=== PATIENT | female | born 1995 | race Caucasian/White ===

== ENCOUNTER → 2023-10-04 15:33 | Outpatient (REF) | payer BC, SELFPAY | LOC: RAD 15:33 | PROVIDERS: ATTENDING PHYSICIAN Obstetrics & Gynecology; FAMILY PHYSICIAN Nurse Practitioner Family | DX: O26.851 Spotting complicating pregnancy, first trimester (principal) | CPT/HCPCS: 76801 ==

== ENCOUNTER → 2023-10-25 15:16 | Outpatient (REF) | payer BC, SELFPAY | LOC: PNTC 15:16 | PROVIDERS: ATTENDING PHYSICIAN Obstetrics & Gynecology | DX: Z36.0 Encounter for antenatal screening for chromosomal anomalies (principal); Z36.82 Encounter for antenatal screening for nuchal translucency | CPT/HCPCS: 76801; 76813 ==

== ENCOUNTER 2024-01-03 08:12 | Emergency (ER) | payer BC, SELFPAY ==
[2024-01-03] VITALS (8 sets, daily range): BP systolic 100–119; BP diastolic 61–82; PULSE 105–136; BMI 25.2
--- NOTE | 2024-01-03 08:33 | ED.GENMED ---
History of Present Illness
General
Chief Complaint: Problems
Source: patient and family (Mother)
Exam Limitations: none
Time Seen by Provider: 01/03/24 08:17
Nursing documentation reviewed up to this point in time: agreed with
History of Present Illness
History of Present Illness:
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 Patient
reports that she was in her normal state of health yesterday. She says that last night she was up much of the night because her 2-year-old daughter had a nightmare; she says she was holding her daughter and comforting her until around 3 AM. She
says that at around 3 AM she began to have a headache which she describes as a frontal headache. She says she took some Tylenol which helped with her headache and was able to get to bed. When she woke up she said she noted she was having some
soreness in the left shoulder and upper arm which she attributed to lifting her daughter. She says that she started to notice her headache come back. She says that she started to develop some lightheadedness and now she feels very weak as if she
might faint. She says that she ate some breakfast which helped a small amount but her symptoms did not resolve and so she came to the emergency room to be assessed. She does admit that she has had morning sickness with this and has not
been drinking as much water as she should. She also reports that she has been spending a lot of time outside near the pool with her daughter and thinks there is a chance she may be dehydrated. She has not had any chest pain. She denies any
abdominal pain. She denies any vaginal bleeding. She denies any urinary symptoms. She denies any fevers. She denies any palpitations. She denies other complaints.
Past History
Past History
ED Past Surgical History: (02/09/22)
Social History
Tobacco: Non-smoker
Alcohol: None
Drug: None
Personal:
Living: with family
Review of Systems
Review of Systems
All Other Systems: ROS reviewed and negative except as documented in HPI and ROS
Constitutional: Reports fatigue; Denies fever or chills
EENT: Denies sore throat or runny nose
Respiratory: Denies cough or trouble breathing
Cardiac: Denies chest pain or palpitations
ABD/GI: Reports nausea; Denies abdominal pain, vomiting or diarrhea
: Denies dysuria, frequency, flank pain or bleeding
Neurological: Reports dizzy (Lightheaded) and headache
Phy Exam
Physical Exam
Physical Exam:
General: Awake, alert, oriented x3; no acute distress
Head: Normocephalic, atraumatic
Eyes: Conjunctiva normal, sclera anicteric
Throat: Airway intact, slightly dry oral mucosa
Neck: Trachea midline, supple without meningismus
Lungs: Clear to auscultation bilaterally, no wheezing, rales, rhonchi
Heart: Tachycardia with regular rhythm, no murmurs, gallops, or rubs
Abd: Appropriate size for gestational age; soft, non distended, nontender to deep palpation
Back: No CVA tenderness
Neuro: Cranial nerves grossly intact, speech fluid, no gross motor or sensory deficit
Skin: no rash
Extremities: No edema in extremities, equal pulses in all extremities; she has some mild tenderness along the deltoid on the left shoulder as well as the left trapezius but no tenderness along the clavicle, at the AC joint, scapula, and full range
of motion of the left shoulder and elbow
Scores
Heart Failure Risk
Heart Failure Risk Score: Not Applicable
Heart Score for Chest Pain Patients
STEMI patient?: Not applicable
Withdrawal Assessment of Alcohol
Withdrawal Assessment Completed?: Not applicable
Course
Orders/Labs/Results
Orders:
Orders
01/03/24 08:18
Electrocardiogram (*1) Urgent
Reason for Study: Vertigo / Dizzy
EKG- Treatment ONCE
01/03/24 08:19
Orthostatic VS- Treatment ONCE
0.9% Sodium Chloride 1000 ml [Nss] 1,000 ml IV BOLUS
01/03/24 08:45
Heart Tones ONCE
01/03/24 08:56
Complete Blood Count/With Diff Urgent
Comprehensive Metabolic Panel Urgent
TSH Reflex To Free T4 Urgent
Troponin I Urgent
Urinalysis Reflex To Culture Urgent
Date Specimen was Collected: 01/03/24
Time Specimen was Collected: 08:52
01/03/24 11:31
Acetaminophen [Tylenol] 1,000 mg .ROUTE .STK-MED ONE
01/03/24 11:36
Acetaminophen [Tylenol] 1,000 mg PO NOW STA
Abnormal Lab Results
01/03/24
08:56
RBC 3.71 L 10^6/uL
(4.20-5.40)
Hgb 11.3 L g/dL
(12.0-16.0)
Hct 32.9 L %
(37.0-47.0)
Abs Immat Gran (auto) 0.1 H 10^3/uL
(0-0.05)
Absolute Neuts (auto) 8.0 H 10^3/uL
(1.4-6.5)
Absolute Lymphs (auto) 1.1 L 10^3/uL
(1.2-3.4)
Immature Gran % 0.8 H %
(0-0.5)
Neutrophils % 82.0 H %
(42.2-75.2)
Lymphocytes % 11.1 L %
(20.5-51.1)
Sodium 133 L mmol/L
(135-145)
Creatinine 0.4 L mg/dL
(0.6-1.0)
Total Protein 6.0 L g/dl
(6.3-8.2)
Albumin 3.4 L g/dl
(3.5-5.0)
01/03/24 08:56
01/03/24 08:56
Vital Signs
Initial and Last Documented VS:
Initial Vital Signs
Temp Pulse Resp BP Pulse Ox
37.0 C 111 18 119/81 100
01/03/24 08:13 01/03/24 08:13 01/03/24 08:13 01/03/24 08:13 01/03/24 08:13
Last Documented Vital Signs
Temp Pulse Resp BP Pulse Ox
37.0 C 82 15 101/67 99
01/03/24 08:13 01/03/24 12:00 01/03/24 12:00 01/03/24 12:00 01/03/24 12:00
Information
Weeks gestation: N/A
Location: N/A
MDM/Problems Addressed
Differential Diagnosis Includes:
Anemia, dehydration, electrolyte derangement, dysrhythmia, thyroid dysfunction, pericarditis/myocarditis less likely
MDM/Problems Addressed:
28-year-old female presents to the emergency room primarily concerned about lightheadedness that started this morning�was up most of the night last night comforting her 2-year-old daughter due to a nightmare and developed headache which improved
with Tylenol this morning woke up had some soreness in the left arm/shoulder and developed some lightheadedness. Tachycardic but otherwise normal vitals�she has a long history of tachycardia she says. She does not have any palpitations or chest
pain. Will plan to check an EKG. Will check labs including a CBC and a CMP, thyroid studies, troponin. Will provide some IV fluids. Will reassess after the above.
Labs reviewed: CBC shows hemoglobin of 11.3 normal related change. CMP no clinically significant abnormalities. Troponin was undetectable. Thyroid studies normal. Urinalysis negative for infection. EKG shows sinus rhythm. Orthostatic
vital signs did show significant increase in heart rate from lying to standing. Clinical suspicion is for dehydration and likely lack of sleep also contributing to her symptoms. Who provided IV fluids and Tylenol here and patient says she is
feeling much better. Heart rate improved to the 80s now. I think she is stable for discharge. Advised patient to try to stay out of the sun and to be mindful of hydration and sleep. She indicated understanding. All questions answered.
*Pulse Oximetry
Patient hypoxic: no
*EKG
Interpreted by ED Provider?: Yes
Comparison EKG: changes noted (HR decreased)
Heart Rate: 104
Rate: tachycardiac
Rhythm: sinus
[place]: normal axis
Interval: normal interval
QRS Pattern: normal QRS
Ischemia: no ischemia
*Critical Care Note
Total Time (30-74mins, 75-104mins- exclusive of procedures): Not Applicable
Data Reviewed
Review of Other/Old Records Reveals: Labs, Records and Testing (Echocardiogram)
Source: patient and records
ED Attending Note
-
Portions of this chart may have been created with voice recognition software.� Occasional wrong word or��sound alike� substitutions may have occurred due to the inherent limitations of voice recognition software.
Discharge Plan
Departure
Patient Disposition: Home (Routine Discharge)
Date of Disposition: 01/03/24
Time of Disposition: 12:03
Patient with high blood pressure during this ER visit?: No
Discharge Problem:
Lightheadedness, Dehydration, Headache
Instructions: Taking in Enough Fluids While You Are , Dehydration, Adult ED
Prescriptions:
No Action
PNV cmb#95-ferrous fumarate-FA [] 1 EACH tablet
1 ea PO DAILY
amoxicillin 500 mg Tablet
500 mg PO TID
acetaminophen 325 mg Tablet
650 mg PO Q4HPRN PRN (Reason: mild pain) Qty: 0 0RF
sennosides-docusate sodium 8.6-50 mg Tablet
1 tab PO DAILYPRN PRN (Reason: constipation) Qty: 0 0RF
oxycodone-acetaminophen 5-325 mg Tablet
1 tab PO Q4HPRN Qty: 12 0RF
ibuprofen 600 mg Tablet
600 mg PO Q6HPRN PRN (Reason: cramps) Qty: 30 0RF
simethicone [Gas Relief 80 (simethicone)] 80 mg Tablet,Chewable
80 mg PO TIDPRN PRN (Reason: flatulence) Qty: 0 0RF
Referrals:
Claudia Dye DO [Family Provider] - Follow up in 5-7 days
Bella Storey MD [Active] - Keep scheduled appt
Activity Restrictions/Additional Instructions:
Thank you for visiting the Emergency Department at [facility].
1. Please schedule a follow up appointment as directed. Call first thing tomorrow morning to make an appointment.
2. If indicated, please take your medications as instructed and indicated on discharge paperwork.
3. If any of your symptoms do not improve, or persist, or become more severe within 6-12 hours, please return to the emergency department for further care.
4. Please return to the emergency department if you develop a headache, neck pain/stiffness, fever greater than 100.4F, chest pain, shortness of breath, persistent nausea, vomiting, slurred speech, difficulty walking, numbness/tingling, weakness,
signs of infection or any other symptoms that are worrisome to you.
Please call [phone] if you have any questions.
Interventions
Interventions:
*Risk Screen - Suicide Last Done: 01/03/24 08:13
*General Assessment Last Done: 01/03/24 08:13
*Neglect/Abuse Screening Last Done: 01/03/24 08:13
ED- Fall Risk Assessment Last Done: 01/03/24 08:47
*ED COVID-19 Vaccine History Last Done: 01/03/24 08:13
*Nursing Disposition Last Done: 01/03/24 12:21
ED-Female Genitourinary Assessment Last Done: 01/03/24 09:28
Discharge Date and Time
Discharge Date/Time: 01/03/24 12:23
Print Language: TAMAZIGHT
[2024-01-03] MEDS: NSS 1000 IV (08:55)
[2024-01-03 09:28] LABS: Urine Albumin Negative (Neg - Trace); Urine Bilirubin Negative (Negative); Urine Character Slightly Cloudy (Clear); Urine Color Yellow; Urine Glucose Negative (Negative); Urine Ketone Negative (Negative); Urine Leukocyte Negative (Negative); Urine Nitrite Negative (Negative); Urine Occult Blood Negative (Negative); Urine Specific Gravity 1.015 (<1.030); Urine Urobilinogen Negative (Neg - 1+)
[2024-01-03 09:31] LABS: ALT (SGPT) 12 U/L (0-35); AST (SGOT) 22 U/L (14-36); Albumin 3.4 g/dl (3.5-5.0); Alkaline Phosphatase 53 U/L (38-126); Blood Urea Nitrogen 8 mg/dl (7-17); Calcium 8.5 mg/dl (8.4-10.2); Carbon Dioxide 22 mmol/L (22-30); Chloride 106 mmol/L (98-107); Estimated Creatinine Clearance > 125 ml/min; Glucose 99 mg/dl (70-99); Potassium 3.6 mmol/L (3.5-5.1); Sodium 133 mmol/L (135-145); Total Bilirubin 0.3 mg/dl (0.2-1.3); eGFR > 60.00
[2024-01-03 09:33] LABS: % Basophils 0.3 % (0-2); % Eosinophils 0.2 % (0-6); % Immature Granulocytes 0.8 % (0-0.5); % Lymphocytes 11.1 % (20.5-51.1); % Monocytes 5.6 % (1.7-9.3); Absolute Immature Granulocytes 0.1 10^3/uL (0-0.05); Absolute Lymphocytes 1.1 10^3/uL (1.2-3.4); Absolute Monocytes 0.6 10^3/uL (0.1-0.6); Hematocrit 32.9 % (37.0-47.0); Hemoglobin 11.3 g/dL (12.0-16.0); Mean Corp Hgb Conc. 34.3 g/dL (33.0-37.0); Mean Corpuscular Hgb 30.5 pg (27.0-31.0); Mean Corpuscular Volume 88.7 fL (81.0-99.0); Nucleated Red Blood Cells % 0 %; Platelet Count 221 10^3/uL (130-400); Red Blood Cell Count 3.71 10^6/uL (4.20-5.40); Red Cell Dist. Width 13.4 % (11.5-14.5); White Blood Cell Count 9.8 10^3/uL (4.8-10.8)
[2024-01-03 09:42] LABS: Troponin I < 0.012 ng/ml
[2024-01-03 10:02] LABS: TSH Reflex To Free T4 0.86 uIU/ml (0.47-4.68)
[2024-01-03] MEDS: TYLENOL 1000 MG PO (11:37)
== END 2024-01-03 12:23 | disposition home or self-care (01) ==
LOC: EMR 08:12
PROVIDERS: EMERGENCY PHYSICIAN Emergency Medicine; FAMILY PHYSICIAN Family Medicine
DX: O99.891 Other specified diseases and conditions complicating pregnancy (principal); R42 Dizziness and giddiness; E86.0 Dehydration; R51.9 Headache, unspecified; Z3A.22 22 weeks gestation of pregnancy
CPT/HCPCS: 99283; 80053; 81003; 84443; 84484; 85025; 93005

== ENCOUNTER 2024-02-24 10:39 | Observation (INO) | payer BC, SELFPAY ==
[2024-02-24 10:56] VITALS: BP 115/69; BMI 25.1
== END 2024-02-24 11:58 | disposition home or self-care (01) ==
LOC: LDRP 10:39
PROVIDERS: ADMITTING PHYSICIAN Obstetrics & Gynecology
DX: R10.9 Unspecified abdominal pain (principal); O47.03 False labor before 37 completed weeks of gestation, third trimester; Z3A.29 29 weeks gestation of pregnancy; O34.211 Maternal care for low transverse scar from previous cesarean delivery; O99.343 Other mental disorders complicating pregnancy, third trimester; F41.9 Anxiety disorder, unspecified; Z91.040 Latex allergy status; Z87.440 Personal history of urinary (tract) infections
CPT/HCPCS: 99281; G0378

== ENCOUNTER 2024-03-13 05:42 | Inpatient (IN) | payer BC, SELFPAY ==
[2024-03-13] MEDS: LR 1000 IV ×2 (06:08→15:16)
[2024-03-13] MEDS: TYLENOL 1000 MG PO (06:18)
[2024-03-13 06:24] VITALS: BP 118/75; BMI 25.1
[2024-03-13 06:32] LABS: Hematocrit 33.3 % (37.0-47.0); Hemoglobin 11.2 g/dL (12.0-16.0); Mean Corp Hgb Conc. 33.6 g/dL (33.0-37.0); Mean Corpuscular Hgb 29.6 pg (27.0-31.0); Mean Corpuscular Volume 88.1 fL (81.0-99.0); Mean Platelet Volume 10.4 fL (7.4-10.4); Platelet Count 232 10^3/uL (130-400); Red Blood Cell Count 3.78 10^6/uL (4.20-5.40); Red Cell Dist. Width 12.8 % (11.5-14.5); White Blood Cell Count 8.4 10^3/uL (4.8-10.8)
[2024-03-13 06:50] LABS: ALT (SGPT) 11 U/L (0-35); AST (SGOT) 24 U/L (14-36); Albumin 3.4 g/dl (3.5-5.0); Alkaline Phosphatase 111 U/L (38-126); Blood Urea Nitrogen 10 mg/dl (7-17); Calcium 8.8 mg/dl (8.4-10.2); Carbon Dioxide 18 mmol/L (22-30); Chloride 108 mmol/L (98-107); Estimated Creatinine Clearance > 125 ml/min; Glucose 86 mg/dl (70-99); Sodium 138 mmol/L (135-145); Total Bilirubin 0.3 mg/dl (0.2-1.3); Total Protein 5.9 g/dl (6.3-8.2); eGFR > 60.00
[2024-03-13 07:15] LABS: Fibrinogen 530 MG/DL (199-459); INR 1.04; PT 13.6 Sec (11.4-14.6)
[2024-03-13] MEDS: CELESTONE SOLUSPAN 2 MG IM (07:42)
[2024-03-13 07:52] LABS: Urine Albumin Negative (Neg - Trace); Urine Bilirubin Negative (Negative); Urine Character Clear (Clear); Urine Color Yellow; Urine Glucose Negative (Negative); Urine Ketone Negative (Negative); Urine Leukocyte Negative (Negative); Urine Nitrite Negative (Negative); Urine Occult Blood 4+ (Negative); Urine Urobilinogen Negative (Neg - 1+)
[2024-03-13 08:06] LABS: Urine Squamous Cell 16-20 /LPF (Few)
[2024-03-13 08:07] LABS: Urine White Cell 0-2 /HPF (0-5)
[2024-03-13] MEDS: TUMS EX (EXTRA STRENGTH) CHEWABLE 2 TABLET PO (20:03)
[2024-03-14] MEDS: CELESTONE SOLUSPAN 2 MG IM (07:05)
== END 2024-03-14 08:30 | disposition home or self-care (01) | DRG 833 ==
LOC: LDRP 05:42
PROVIDERS: ADMITTING PHYSICIAN Obstetrics & Gynecology
DX: O46.93 Antepartum hemorrhage, unspecified, third trimester (principal); O36.63X0 Maternal care for excessive fetal growth, third trimester, not applicable or unspecified; Z3A.32 32 weeks gestation of pregnancy
CPT/HCPCS: 76816; 80053; 81003; 81015; 85027; 85384; 85460; 85610; 86850; 86900; 86901

== ENCOUNTER 2024-04-18 15:24 | Observation (INO) | payer OTHER, SELFPAY ==
[2024-04-18 15:34] VITALS: BP 104/77; BMI 26.7
== END 2024-04-18 17:22 | disposition home or self-care (01) ==
LOC: LDRP 15:24
PROVIDERS: ADMITTING PHYSICIAN Obstetrics & Gynecology
DX: O26.813 Pregnancy related exhaustion and fatigue, third trimester (principal); Z3A.37 37 weeks gestation of pregnancy; Z91.040 Latex allergy status; O99.343 Other mental disorders complicating pregnancy, third trimester; F41.9 Anxiety disorder, unspecified; O99.820 Streptococcus B carrier state complicating pregnancy
CPT/HCPCS: 36415; 86850; 86900; 86901; G0378

== ENCOUNTER 2024-04-19 14:21 | Inpatient (IN) | payer OTHER, SELFPAY ==
[2024-04-19 14:27] VITALS: BP 112/70; BMI 26.5
[2024-04-19] MEDS: LR 1000 IV (14:59)
[2024-04-19 15:16] LABS: Hematocrit 35.3 % (37.0-47.0); Mean Corpuscular Hgb 27.8 pg (27.0-31.0); Mean Corpuscular Volume 81.9 fL (81.0-99.0); Mean Platelet Volume 11.1 fL (7.4-10.4); Platelet Count 199 10^3/uL (130-400); Red Blood Cell Count 4.31 10^6/uL (4.20-5.40); Red Cell Dist. Width 13.3 % (11.5-14.5); White Blood Cell Count 7.1 10^3/uL (4.8-10.8)
[2024-04-19] MEDS: BICITRA 30 ML PO (15:24)
[2024-04-19] MEDS: TYLENOL 1000 MG PO (15:24)
[2024-04-19] MEDS: ANCEF 10 IV (15:24)
[2024-04-19] MEDS: PITOCIN 30 UNITS/NSS 500 ML IV (18:27)
[2024-04-19] MEDS: PERCOCET 5/325 2 TABLET PO (19:47)
[2024-04-19] MEDS: BENADRYL 25 MG PO (22:06)
[2024-04-19] MEDS: ZOLOFT 50 MG PO (22:06)
[2024-04-19] MEDS: TORADOL 15 MG IV (22:32)
[2024-04-20] MEDS: PERCOCET 5/325 2 TABLET PO (00:57)
[2024-04-20] MEDS: BENADRYL 25 MG PO (04:26)
[2024-04-20 04:35] LABS: Hemoglobin 9.2 g/dL (12.0-16.0); Mean Corp Hgb Conc. 34.1 g/dL (33.0-37.0); Mean Corpuscular Hgb 28.7 pg (27.0-31.0); Mean Corpuscular Volume 84.1 fL (81.0-99.0); Mean Platelet Volume 11.3 fL (7.4-10.4); Platelet Count 168 10^3/uL (130-400); Red Blood Cell Count 3.21 10^6/uL (4.20-5.40); Red Cell Dist. Width 13.2 % (11.5-14.5); White Blood Cell Count 11.8 10^3/uL (4.8-10.8)
[2024-04-20] MEDS: PERCOCET 5/325 1 TABLET PO ×5 (05:04→23:59)
[2024-04-20] MEDS: TORADOL 15 MG IV ×3 (05:04→16:43)
[2024-04-20] MEDS: SENOKOT-S 1 TABLET PO (08:58)
[2024-04-20] MEDS: PRENATAL PLUS 1 TABLET PO ×2 (08:58→11:00)
[2024-04-20] MEDS: FEOSOL 325 MG PO (11:00)
[2024-04-20] MEDS: MYLICON 80 MG PO ×2 (16:54→20:17)
--- NOTE | 2024-04-20 19:02 | W.PN.ANS.POP ---
Anesthesia Post Operative
- Anesthesia Post Op Note
Vital Signs Stable-See Nursing Note: Yes
Airway Patent: Yes
Adequate Pain Control: Yes
Change in Mental Status: No
Current Postoperative Nausea & Vomiting: No
Anesthesia Complications: No
General Anesthetic Recall: No
Unplanned Admission: No
Post Op Hydration Adequate: Yes
[2024-04-20] MEDS: ZOLOFT 50 MG PO (23:45)
[2024-04-21] MEDS: MOTRIN 600 MG PO ×4 (00:14→23:18)
[2024-04-21] MEDS: MYLICON 80 MG PO (06:50)
[2024-04-21] MEDS: PERCOCET 5/325 1 TABLET PO ×3 (06:50→16:13)
[2024-04-21] MEDS: SENOKOT-S 1 TABLET PO (08:28)
[2024-04-21] MEDS: FEOSOL 325 MG PO (08:28)
[2024-04-21] MEDS: PERCOCET 5/325 2 TABLET PO (20:06)
[2024-04-21] MEDS: ZOLOFT 50 MG PO (22:07)
[2024-04-21] MEDS: TUMS CHEWABLE TABLET 400 MG PO (22:58)
[2024-04-22] MEDS: PERCOCET 5/325 1 TABLET PO ×2 (06:29→12:28)
[2024-04-22] MEDS: MOTRIN 600 MG PO ×2 (06:30→12:28)
[2024-04-22] MEDS: SENOKOT-S 1 TABLET PO (08:09)
[2024-04-22] MEDS: MYLICON 80 MG PO (08:09)
[2024-04-22] MEDS: PRENATAL PLUS 1 TABLET PO (08:09)
[2024-04-22] MEDS: FEOSOL 325 MG PO (08:09)
--- NOTE | 2024-04-22 11:02 | W.DS.TRANS ---
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
-
Discharge Instructions:
Discharge Diagnosis/Procedures Section
Instructions:
Stand-Alone Forms: LDRP Delivery
Changes to Home Medications: No
Discharge Medications:
DC Medications w/original date entered in [employer]
vit no.95-ferrous fumarate 28 mg-folic acid 800 mcg tablet () 1 ea PO DAILY Supplement 11/17/21
sertraline 50 mg tablet 50 mg PO DAILY Depression 02/24/24
acetaminophen 325 mg tablet 650 mg (2 x 325 mg) PO Q4HPRN PRN mild pain #0 tabs 04/22/24
ferrous sulfate 325 mg (65 mg iron) tablet (FeroSul) 325 mg PO DAILY #0 tabs 04/22/24
ibuprofen 600 mg tablet 600 mg PO Q6HPRN PRN cramps #60 tabs 04/22/24
oxycodone-acetaminophen 5 mg-325 mg tablet 1 tab PO Q4HPRN PRN moderate pain #15 tabs 04/22/24
sennosides 8.6 mg-docusate sodium 50 mg tablet 1 tab PO DAILYPRN PRN constipation #0 tabs 04/22/24
Home Medication Changes
Pending Results: No
[2024-04-22] MEDS: AFLURIA (36 mos+) 2024-2025 FORMULA 0.5 ML IM (12:24)
[2024-04-22 15:19] LABS: Syphilis/T. pallidum Ab Reflex Negative (Negative)
== END 2024-04-22 13:23 | disposition home or self-care (01) | DRG 788 ==
LOC: LDRP 14:21
PROVIDERS: ADMITTING PHYSICIAN Obstetrics & Gynecology
PROC: 10D00Z1 Extraction of Products of Conception, Low, Open Approach (ICD-10-PCS; 2024-04-19)
DX: O34.211 Maternal care for low transverse scar from previous cesarean delivery (principal); O36.63X0 Maternal care for excessive fetal growth, third trimester, not applicable or unspecified; O77.0 Labor and delivery complicated by meconium in amniotic fluid; Z3A.37 37 weeks gestation of pregnancy; Z37.0 Single live birth; N85.8 Other specified noninflammatory disorders of uterus; O99.824 Streptococcus B carrier state complicating childbirth
CPT/HCPCS: 88307; 85027; 86780; 86850; 86900; 86901; 90686; G0008

== ENCOUNTER → 2024-05-03 10:19 | Day surgery (SDC) | payer OTHER, SELFPAY ==
[2024-05-03 10:29] VITALS: BP 142/92
[2024-05-03 11:05] VITALS: BMI 24.3
[2024-05-03 11:18] VITALS: BP 117/82
[2024-05-03 11:27] LABS: % Basophils 0.9 % (0-2); % Eosinophils 2.5 % (0-6); % Immature Granulocytes 0.3 % (0-0.5); % Lymphocytes 27.2 % (20.5-51.1); % Monocytes 5.1 % (1.7-9.3); Absolute Basophils 0.1 10^3/uL (0-0.2); Absolute Eosinophils 0.2 10^3/uL (0-0.7); Absolute Lymphocytes 2.6 10^3/uL (1.2-3.4); Absolute Monocytes 0.5 10^3/uL (0.1-0.6); Absolute Neutrophils 6.1 10^3/uL (1.4-6.5); Hematocrit 37.7 % (37.0-47.0); Hemoglobin 12.4 g/dL (12.0-16.0); Mean Corp Hgb Conc. 32.9 g/dL (33.0-37.0); Mean Corpuscular Hgb 28.1 pg (27.0-31.0); Mean Corpuscular Volume 85.5 fL (81.0-99.0); Mean Platelet Volume 9.5 fL (7.4-10.4); Nucleated Red Blood Cells % 0 %; Platelet Count 372 10^3/uL (130-400); Red Blood Cell Count 4.41 10^6/uL (4.20-5.40); Red Cell Dist. Width 13.8 % (11.5-14.5); White Blood Cell Count 9.5 10^3/uL (4.8-10.8)
[2024-05-03 11:39] LABS: ALT (SGPT) 18 U/L (0-35); AST (SGOT) 25 U/L (14-36); Albumin 3.9 g/dl (3.5-5.0); Alkaline Phosphatase 140 U/L (38-126); Blood Urea Nitrogen 17 mg/dl (7-17); Carbon Dioxide 22 mmol/L (22-30); Chloride 108 mmol/L (98-107); Estimated Creatinine Clearance 114 ml/min; Glucose 92 mg/dl (70-99); Potassium 4.2 mmol/L (3.5-5.1); Sodium 143 mmol/L (135-145); Total Bilirubin 0.4 mg/dl (0.2-1.3); Total Protein 6.8 g/dl (6.3-8.2); eGFR > 60.00
--- NOTE | 2024-05-03 12:53 | ED.GENMED ---
History of Present Illness
General
Chief Complaint: Vaginal Bleeding
Source: patient
Exam Limitations: none
Time Seen by Provider: 05/03/24 10:40
Nursing documentation reviewed up to this point in time: agreed with
History of Present Illness
History of Present Illness:
pt is a 28 y/o F 2 weeks post c section 37 weeks 3 days
here for pelvic pain and vaginal bleeding
she has had dysuria, frequency, urgency since being a few days post
was able to get seen and give ua, was treated with amox initially and then still symptomatic switched to another abx which pt doesn't know and then now on augmentin
pt says that she still has been feeling the discomfort with urination
but then yesterday developed a lot of pelvic pain, severe pain, treate dwiht round the clock ibuprofen 600 and tylenol
this morning she started bleeding, passing large blood clots and using multiple pads
called the OB second butler and was told to come in for eval
pt has not had fever, chills, nausea, vomting
Past History
Past History
ED Past Surgical History: (02/09/22)
Social History
Tobacco: Non-smoker
Alcohol: None
Drug: None
Personal:
Living: with family
Review of Systems
Review of Systems
Allergies reviewed?: Yes
All Other Systems: Not applicable
Phy Exam
Physical Exam
Physical Exam:
GENERAL: Alert , very anxious
EYE: pupils equal and reactive
NECK: Supple
ENT: o/p clr, mmm.
CARDIAC: Regular rate and rhythm .
LUNGS: Clear breath sounds bilaterally, no acute respiratory distress, no wheezes/rales/rhonchi
ABDOMEN: Soft, without focal tenderness, no r/g, no cvat, normal bowel sounds
: normal ex ternal
mod blood in vault
no clots
mild discomfort;
no products
NEUROLOGICAL: Alert and oriented, no focal neuro deficits
SKIN: Warm and dry, skin intact.
MUSCULOSKELETAL: No edema, well perfused. neg atif's sign
PSYCH: anxious
Course
Orders/Labs/Results
Orders:
Orders
05/03/24 10:53
US Pelvis Only (non-obstetric) Urgent
Reason For Exam: 2 weeks postpart; pain/bleed; eval endometritis
05/03/24 11:17
Complete Blood Count/With Diff Urgent
Comprehensive Metabolic Panel Urgent
05/03/24 12:49
Type+Screen Urgent
Fibrinogen Urgent
PTT Urgent
Prothrombin Time Urgent
05/03/24 13:29
HYDROmorphone [Dilaudid] 0.25 mg IV PACU-Q5MPRN PRN
HYDROmorphone [Dilaudid] 0.5 mg IV PACU-Q5MPRN PRN
Meperidine [Demerol] 12.5 mg IV PACU-Q5MPRN PRN
Ondansetron Injectable [Zofran] 4 mg IV PACU-ONCEPRN PRN
Prochlorperazine [Compazine] 5 mg IV PACU-ONCEPRN PRN
Notify MD As Directed
Notify physician if: for SDS patients with known or suspected sleep obstructive sleep apnea, monitor in the
PACU.
Notify MD for any apneic/desaturation episodes
O2 Therapy [RESP] Urgent
Titrate/Wean O2 to maintain O2 sat greater than (%): 92
Special Instructions: -Provide supplemental oxygen to achieve O2 sat of 92% or greater.
-After 15 min, may wean O2 and discontinue if patient is able to maintain O2 sat of 92%
or greater during recovery period.
If patient is a discharge home, without oxygen therapy, notify anestheiologist if
unable to maintain O2 SAT of 92% or greater on room air for MD clearance.
05/03/24 13:56
Fentanyl Citrate/Pf [Sublimaze] 100 mcg .ROUTE .STK-MED ONE
Lidocaine 2% Mpf [Xylocaine Mpf 2%] 100 mg .ROUTE .STK-MED ONE
Midazolam HCl [Versed] 2 mg .ROUTE .STK-MED ONE
Propofol [Diprivan] 20 ml .ROUTE .STK-MED
05/03/24 14:27
CeFAZolin SODIUM [Ancef] 2,000 mg .ROUTE .STK-MED ONE
05/03/24 14:29
Acetaminophen 1000MG/100Ml [Ofirmev] 1,000 mg in 100 ml .ROUTE .STK-MED
Dexamethasone Sod Phosphate [Decadron] 20 mg .ROUTE .STK-MED ONE
Ondansetron Injectable [Zofran] 4 mg .ROUTE .STK-MED ONE
OR Pathology Routine
Pre-Operative Diagnosis: retained products of conception
Post-Operative Diagnosis: retained products of conception
Operative Procedure: dilation and currettage
Surgeon: Bimal
Circulating Nurse: Shauna Connor
Specimen Type: Retained products of conception
05/03/24 15:05
Tranexamic Acid 1000 mg/100 ml [Tranexamic Acid] 1,000 mg in 100 ml .ROUTE .STK-MED
05/03/24 15:17
Methylergonovine Maleate [Methergine Injection] 0.2 mg IM STAT STA
05/03/24 16:00
Acetaminophen [Tylenol] 650 mg PO SDS-Q4HPRN PRN
Ibuprofen [Motrin] 600 mg PO SDS-Q6HPRN PRN
Ondansetron Injectable [Zofran] 4 mg IV SDS-ONCEPRN PRN
Abnormal Lab Results
05/03/24
11:17
MCHC 32.9 L g/dL
(33.0-37.0)
Chloride 108 H mmol/L
(98-107)
Alkaline Phosphatase 140 H U/L
(38-126)
05/03/24 11:17
05/03/24 11:17
Vital Signs
Initial and Last Documented VS:
Initial Vital Signs
Temp Pulse Resp BP Pulse Ox
98.8 F 109 16 142/92 98
05/03/24 10:29 05/03/24 10:29 05/03/24 10:29 05/03/24 10:29 05/03/24 10:29
Last Documented Vital Signs
Temp Pulse Resp BP Pulse Ox
99.0 F 77 14 104/66 100
05/03/24 17:35 05/03/24 16:35 05/03/24 16:35 05/03/24 16:35 05/03/24 15:35
MDM/Problems Addressed
Differential Diagnosis Includes:
retained products, endometritis, post bleeding
MDM/Problems Addressed:
28 y/o F
2 weeks post
has been having ongoing dysuria, frequency despite abx that she was prescribe by ob after UA and culture
is on correct antibiotic at this point bu thaving pelvic pain since lsa tnight and then bleeding that started today with clots
no lightheadedness
well appearing
anxious
stable bp
blood in vault but no significant active bleeding
no clots
no products at cervix
hg stable
US shows blood and possibly retained products in uterus
OB aware, eval pt and will take pt to the OR for D&C.
*Critical Care Note
Total Time (30-74mins, 75-104mins- exclusive of procedures): Not Applicable
ED Attending Note
-
Portions of this chart may have been created with voice recognition software.� Occasional wrong word or��sound alike� substitutions may have occurred due to the inherent limitations of voice recognition software.
Discharge Plan
Departure
Patient Disposition: Admit
Date of Disposition: 05/03/24
Time of Disposition: 13:00
Admit to: OR
Admit to doctor: bimal
Presentation/result/management discussed w/ accepting MD/DO: bimal
Patient with high blood pressure during this ER visit?: No
Condition: Fair
Covid-19: Not Applicable
Discharge Problem:
Retained products of conception
Prescriptions:
No Action
PNV cmb#95-ferrous fumarate-FA [] 1 EACH tablet
1 ea PO DAILY
sertraline 50 mg Tablet
50 mg PO HS
ferrous sulfate [FeroSul] 325 mg (65 mg iron) Tablet
325 mg PO DAILY Qty: 0 0RF
oxycodone-acetaminophen 5-325 mg Tablet
1 tab PO Q4HPRN PRN (Reason: moderate pain) Qty: 15 0RF
ibuprofen 600 mg Tablet
600 mg PO Q6HPRN PRN (Reason: cramps) Qty: 60 0RF
acetaminophen 325 mg Tablet
650 mg PO Q4HPRN PRN (Reason: mild pain) Qty: 0 0RF
amoxicillin-pot clavulanate [Augmentin] 500-125 mg Tablet
1 tab PO TID
Patient Comments:
05/03/24: filled 04/29/24, to take for 7 days
sennosides-docusate sodium 8.6-50 mg tablet
1 tab PO DAILY
Referrals:
Claudia Dye DO [Family Provider] -
Interventions
Interventions:
*Risk Screen - Suicide Last Done: 05/03/24 10:29
*General Assessment Last Done: 05/03/24 10:29
*Neglect/Abuse Screening Last Done: 05/03/24 10:29
ED- Fall Risk Assessment Last Done: 05/03/24 11:51
*ED COVID-19 Vaccine History Last Done: 05/03/24 11:06
*Nursing Disposition Last Done: 05/03/24 14:02
ED-Female Genitourinary Assessment Last Done: 05/03/24 11:50
Discharge Date and Time
Discharge Date/Time: 05/03/24 14:03
Print Language: MALDIVIAN
[2024-05-03 13:10] LABS: INR 1.09; PT 13.9 Sec (11.4-14.6)
[2024-05-03 13:11] LABS: APTT 31.2 Sec (23.4-35.0); Fibrinogen 404 MG/DL (199-459)
--- NOTE | 2024-05-03 13:26 | HPS.HSE ---
Family Physician
-
Family Physician: Claudia Dye,
Chief Complaint
-
vaginal bleeding 2wks from c section
History of Present Illness
Patient is a 28yo s/p RLTCS on 04/19 who presents to the ED with complaints of vaginal bleeding. Patient states yesterday she was having lower abdominal pain behind her c section scar. She started taking ibuprofen and tylenol which has improved
her pain. This morning, she says she passed a few golf ball sized clots and then had an increase in her bleeding. She has been changing her pads frequently, but they are not soaked through. She is otherwise doing well . She is tolerating a
regular diet, having bowel movements and voiding spontaneously. She is currently taking Augmentin for a UTI that was diagnosed on Sunday. She is .
PMHx: SVT, anxiety, vulvodynia
Meds: sertraline, augmentin
Surghx: CSx2, LSO
NKDA
Socialhx: denies tobacco, etoh, or illicit drug use.
Famhx: daughter with 16p11.2 deletion syndrome
Pelvic US:
FINDINGS:
The uterus measures approximately 15.7 x 5.7 x 9.5 cm.
The uterus is noted.
There is mild heterogeneous thickening of the endometrium measuring 1.8 cm without increased blood flow within.
The right ovary measures 2.4 x 1.4 x 2.3 cm. There is no right adnexal mass. Right ovarian blood flow is seen..
The left ovary is surgically absent.
There is no free fluid within the cul-de-sac.
At least partially within the abdominal wall site there are several hypoechoic complex fluid collections larger measuring 4.4 x 3.5 x 4.4 cm and additional collections measuring 1.9 x 1.4 x 1.5 cm and 2.0 x 1.5 x 2.5 cm without blood flow
within.
There is no free fluid in the pelvis.
IMPRESSION:
Heterogeneous appearance of the endometrium measuring 1.8 cm without blood flow within. Findings could represent blood products. Retained products of conception cannot be excluded. Endometritis would be less but cannot be excluded.
At least three mildly complex abnormal focal fluid collections at least partially associated with the abdominal wall surgical site without blood flow within, most likely differential diagnostic possibilities would be complex seromas or
hematomas. Abscess cannot be excluded.
Medical History
Past Medical History
Past Medical History: Reports Other
Additional Past Medical History:
anxiety, SVT, vulvodynia
Past Surgical History: Reports Other
Additional Past Surgical History:
CSx2, LSO
Social History
Tobacco: Non-smoker
Alcohol: None
Drug: None
Family History
Family History: Not pertinent
Allergies / Home Medications
Allergies reflects when Allergies were last updated in [employer].
Home Medications with original date entered in [employer]
Allergy/Medication List:
NKDA
Meds: Sertraline, augmentin
Review of Systems
-
A 12 point ROS was completed and negative except as noted: Yes
Physical Exam
Vital Signs
Vital Signs
Temp Pulse Resp BP Pulse Ox
98.8 F 88 18 117/82 98
05/03/24 10:29 05/03/24 11:18 05/03/24 11:18 05/03/24 11:18 05/03/24 10:29
Physical Exam
General: Well Developed, Well Nourished and No Apparent Distress
HEENT: NormoCephalic
Respiratory: Non Labored Respirations
Cardiac: Regular Rhythm
GI: Soft, Non Tender, Non Distended and Other (incision c/d/i, no erythema, no signs of infection)
Genito-urinary: Other (10cc of blood in the vaginal vault, small amount of active oozing noted from cervix, normal vaginal mucosa, uterus non-tender, no adnexal masses)
Skin: Warm and Dry
Neuro: AO x 3
Psych: Anxious
Laboratory Results
-
05/03/24 11:17
05/03/24 11:17
Laboratory Results
PT 13.9 Sec (11.4-14.6) 05/03/24 12:49
INR 1.09 05/03/24 12:49
APTT 31.2 Sec (23.4-35.0) 05/03/24 12:49
Total Bilirubin 0.4 mg/dl (0.2-1.3) 05/03/24 11:17
AST 25 U/L (14-36) 05/03/24 11:17
ALT 18 U/L (0-35) 05/03/24 11:17
Alkaline Phosphatase 140 U/L (38-126) H 05/03/24 11:17
Impression/Plan
-
IMPRESSION:
Patient is a 28yo s/p RLTCS on 04/19 who presents with vaginal bleeding, US with possible retained products of conception
PLAN:
- Pelvic US revealed heterogeneous appearance of the endometrium measuring 1.8 cm without blood flow within. Findings could represent blood products. Retained products of conception cannot be excluded. Endometritis would be less but cannot be
excluded.
- Given patients increased bleeding and findings of possible retained products, discussed with patient recommendation for dilation and curettage. Risks, benefits, and alternatives to the procedure discussed including bleeding, infection, and damage
to surrounding structures and need for re-operation. Patient also aware that there might not be retained products and could just be blood clots in the uterus, however still recommend dilation and curettage. Patient agreeable to a blood transfusion
if needed. Risks of a blood transfusion discussed
- No concern for endometritis or infection/abscess of the c section incision at this time. Incision is clean/dry/intact with erythema and is nontender to palpation. The uterus is nontender.
- Patient is afebrile and VSS. Hgb 12.4.
- Patient is agreeable to proceeding with dilation and curettage. All questions were answered by the patient and her . OR staff was notified. Will give Ancef 2g prior to the procedure. Likely DC patient home from PACU.
[2024-05-03 15:35] VITALS: BP 127/78; BP 142/92
[2024-05-03 15:39] VITALS: BP 124/78
[2024-05-03 15:50] VITALS: BP 124/78
[2024-05-03 16:35] VITALS: BP 104/66
--- NOTE | 2024-05-03 16:48 | OR.RPT ---
Operative Report
Operative Report
Preop diagnosis: Retained products of conception
Postop diagnosis: same
Procedure: Dilation and curettage
Surgeon: Nati Wallis
Anesthesia: Dr. Howard
QBL: 250mL
Urine output: 50mL
Pathology: retained products of conception
Findings: Bimanual exam revealed uterus 16wk size, cervix 1-2cm dilated. Multiple blood clots and likely retained products removed on curettage. Continued oozing noted from cervical os at the end of the procedure. Methergine was ordered, but took
over 20 minutes to come from pharmacy. 1g TXA was given while waiting. Methergine 0.2mg IM given with improvement in bleeding. Uterus firm at the end of the procedure.
Complications: none
Indication: Patient is a 28yo s/p repeat low transverse section on 04/19. She called with complaints of passage of golf ball sized clots followed by heavy bleeding. Patient was instructed to go to the emergency room. On evaluation
in the emergency room, she had stable vital signs and hemoglobin was 12.4. Pelvic ultrasound revealed possible retained products of conception vs. blood products in the uterus. Given patients heavy bleeding, decision was made to proceed with
dilation and curettage. Risks, benefits, and alternatives were discussed and all questions answered prior to proceeding. She consented to a blood transfusion if needed. Consents were signed and the OR team was notified.
Procedure: Patient was taken to the operating room and placed under general anesthesia. She was given 2g of Ancef for antibiotic prophylaxis. She was placed in the dorsal lithotomy position. The vagina was prepped with Betadine. She was draped in
the normal sterile fashion. Time out was performed. A Brunner catheter was placed. Rosario retractors were placed in the anterior and posterior aspects of the vagina revealing good visualization of the cervix. The anterior lip of the cervix was grasped
with a single tooth tenaculum. A size 1 curette was introduced to the fundus and curettage was performed in a clockwise fashion in all quadrants of the uterine cavity. A 12mm curved rigid suction curette was advanced to the fundus. Vacuum was
applied and suction curettage was performed in a rotational motion in all quadrants of the uterus. 2 passes were performed. Care was taken not to introduce the suction curette with suction applied. A sharp curettage was then performed again until
uterine cry was felt in all quadrants of the uterus. Retained products of conception were sent to pathology for evaluation. There was still continue oozing with pooling of blood in the vaginal vault. Methergine 0.2mg IM was ordered, but was taking
over 20 minutes to come from pharmacy. While waiting, 1g of TXA was given. Methergine was given IM once it was available. There was improvement in the bleeding. Uterus was firm. The tenaculum was removed from the cervix and pressure was held with a
ring forceps to achieve hemostasis. The tenaculum sites were noted to be hemostatic. All instruments were removed from the vagina. The Brunner catheter was removed. All sponge and instrument counts were correct times 2. The patient was transferred to
PACU in stable condition.
--- NOTE | 2024-05-03 17:13 | SUR.PHASEII ---
Seen by Dr Wallis. Perineum checked for excessive bleeding. Discharge plan discussed. Ander velazquez RN \BSN.
== END ==
LOC: EMR 10:18 → SDS 10:19
PROVIDERS: Physician Assistant; ATTENDING PHYSICIAN Student in an Organized Health Care Education/Training Program; EMERGENCY PHYSICIAN Emergency Medicine; FAMILY PHYSICIAN Family Medicine
DX: O72.2 Delayed and secondary postpartum hemorrhage (principal)
CPT/HCPCS: 59160; 88305; 76856; 80053; 85025; 85384; 85610; 85730; 86850; 86900; 86901

== ENCOUNTER 2024-06-08 10:04 | Emergency (ER) | payer OTHER, SELFPAY ==
[2024-06-08 10:24] VITALS: BP 111/74
[2024-06-08 10:40] VITALS: BP 101/66
[2024-06-08 11:00] VITALS: BP 112/77
--- NOTE | 2024-06-08 11:10 | ED.GENMED ---
History of Present Illness
General
Chief Complaint: Fever
Time Seen by Provider: 06/08/24 11:10
History of Present Illness
History of Present Illness:
TIME OF INITIAL ENCOUNTER: 11:15 AM
HPI: Patient is approximately 7 weeks and has been having fevers for the last few days. She also has breast pain and feels she may have mastitis. Minimal abdominal discomfort. No vomiting or diarrhea. Other than the breast pain, she
has no other infectious type of symptoms. No cough/congestion, no dysuria.
EXAM:
GENERAL: Well appearing in no distress
HEENT: Moist oral mucosa
BREAST: There is erythema noted to the upper outer aspect of the right breast with no significant involvement of the areola however the areola is tender to palpation�examination performed with tech in the room
CARDIOVASCULAR: No murmurs, normal heart rate, regular rhythm, No chest wall tenderness
PULMONARY: No respiratory distress, breath sounds are clear and equal
ABDOMEN: Soft with no peritoneal signs, minimal if any tenderness
NEUROLOGIC: Excellent strength all extremities, no coordination deficits
PSYCHIATRIC: Appropriate mental status, normal insight and judgement
EXTREMITIES: Nontender, no edema, moves all extremities equally
SKIN: No rash, no lesions
NUMBER AND COMPLEXITY OF PROBLEMS ADDRESSED AT THE ENCOUNTER
� Chronic conditions affecting care: Anxiety
� Acute Exacerbation and/or Progression of Chronic Illness: This is an acute problem
� Differential Diagnosis includes: Mastitis, doubt bacteremia/sepsis based on vital sign
AMOUNT AND/OR COMPLEXITY OF DATA TO BE REVIEWED AND ANALYZED
� I performed an independent evaluation of and my interpretation is:
EKG:
CT:
X-rays:
Laboratory Studies: White count normal at 5.7, chemistries unremarkable
Other:
� Review of other/old records: I reviewed recent op reports of and retained products of conception
� Clinical information was obtained by an independent historian: I spoke to at bedside
� Prescriptions/Medications Considered but not given:
� Further testing considered but not performed:
RISK OF COMPLICATIONS AND/OR MORBIDITY OR MORTALITY OF PATIENT MANAGEMENT
� Social determinants of health affecting care: Lives at home
� Discussion with other providers: I notify Dr. Storey of patient's presentation at 11:35 AM�agrees with plan of IV Ancef then Keflex
� Escalation of care including admission/observation vs risk of discharge considered: C/S on her 04/19/24. Fevers and chills past three days. Increasing R breast pain. Erythema most notable upper outer quadrant R breast, but
areola is very tender. WBC normal. Was also recently here w/ retained POC - Bimal took to OR 05/03, but bleeding now improved. She has no significant abdominal tenderness on examination.
ANY OTHER UPDATES:
11:38 AM: Planning IV antibiotics and will discharge with Keflex. Very well-appearing on reassessment.
Past History
Past History
ED Past Surgical History: (02/09/22)
Social History
Tobacco: Non-smoker
Alcohol: None
Drug: None
Personal:
Living: with family
Phy Exam
Physical Exam
Physical Exam:
See HPI
Course
Orders/Labs/Results
Orders:
Orders
06/08/24 11:09
CMP [Comprehensive Metabolic Panel] Urgent
Complete Blood Count/With Diff Urgent
06/08/24 11:29
CeFAZolin 1 GRAM [Ancef] 1 gram in 5 ml IV NOW
Abnormal Lab Results
06/08/24
11:09
MCHC 32.1 L g/dL
(33.0-37.0)
RDW 15.9 H %
(11.5-14.5)
Absolute Lymphs (auto) 0.6 L 10^3/uL
(1.2-3.4)
Neutrophils % 83.2 H %
(42.2-75.2)
Lymphocytes % 11.0 L %
(20.5-51.1)
06/08/24 11:09
06/08/24 11:09
Vital Signs
Initial and Last Documented VS:
Initial Vital Signs
Temp Pulse Resp BP Pulse Ox
37.7 C 105 16 111/74 99
06/08/24 10:24 06/08/24 10:24 06/08/24 10:24 06/08/24 10:24 06/08/24 10:24
Last Documented Vital Signs
Temp Pulse Resp BP Pulse Ox
37.7 C 80 15 112/77 97
06/08/24 10:24 06/08/24 11:30 06/08/24 11:30 06/08/24 11:00 06/08/24 11:30
*Critical Care Note
Total Time (30-74mins, 75-104mins- exclusive of procedures): Not Applicable
ED Attending Note
-
Portions of this chart may have been created with voice recognition software.� Occasional wrong word or��sound alike� substitutions may have occurred due to the inherent limitations of voice recognition software.
Discharge Plan
Departure
Patient Disposition: Home (Routine Discharge)
Date of Disposition: 06/08/24
Time of Disposition: 11:41
Patient with high blood pressure during this ER visit?: Yes
Discharge Problem:
Mastitis
Instructions: Mastitis
Prescriptions:
New
cephalexin 500 mg tablet
500 mg PO TID Qty: 21 0RF
No Action
PNV cmb#95-ferrous fumarate-FA [] 1 EACH tablet
1 ea PO DAILY
sertraline 50 mg Tablet
50 mg PO HS
ferrous sulfate [FeroSul] 325 mg (65 mg iron) Tablet
325 mg PO DAILY Qty: 0 0RF
oxycodone-acetaminophen 5-325 mg Tablet
1 tab PO Q4HPRN PRN (Reason: moderate pain) Qty: 15 0RF
ibuprofen 600 mg Tablet
600 mg PO Q6HPRN PRN (Reason: cramps) Qty: 60 0RF
acetaminophen 325 mg Tablet
650 mg PO Q4HPRN PRN (Reason: mild pain) Qty: 0 0RF
amoxicillin-pot clavulanate [Augmentin] 500-125 mg Tablet
1 tab PO TID
Patient Comments:
05/03/24: filled 04/29/24, to take for 7 days
sennosides-docusate sodium 8.6-50 mg tablet
1 tab PO DAILY
Referrals:
Claudia Dye DO [Family Provider] -
Activity Restrictions/Additional Instructions:
I notify Dr. Storey of your symptoms and presentation today. Your white blood cell count is normal. We gave you a one-time dose of IV Ancef. Next dose of Keflex this evening.
Interventions
Interventions:
*Risk Screen - Suicide Last Done: 06/08/24 11:04
*General Assessment Last Done: 06/08/24 11:04
*Neglect/Abuse Screening Last Done: 06/08/24 11:04
ED- Fall Risk Assessment Last Done: 06/08/24 11:04
*ED COVID-19 Vaccine History Last Done: 06/08/24 11:04
ED- Neurological Assessment Last Done: 06/08/24 11:04
ED-Skin Assessment Last Done: 06/08/24 11:04
Discharge Date and Time
Print Language: [id number]
[2024-06-08 11:19] LABS: % Basophils 0.4 % (0-2); % Eosinophils 0.2 % (0-6); % Immature Granulocytes 0.2 % (0-0.5); % Neutrophils 83.2 % (42.2-75.2); Absolute Lymphocytes 0.6 10^3/uL (1.2-3.4); Absolute Monocytes 0.3 10^3/uL (0.1-0.6); Absolute Neutrophils 4.7 10^3/uL (1.4-6.5); Hematocrit 37.7 % (37.0-47.0); Hemoglobin 12.1 g/dL (12.0-16.0); Mean Corp Hgb Conc. 32.1 g/dL (33.0-37.0); Mean Corpuscular Hgb 27.7 pg (27.0-31.0); Mean Corpuscular Volume 86.3 fL (81.0-99.0); Mean Platelet Volume 9.3 fL (7.4-10.4); Nucleated Red Blood Cells % 0 %; Platelet Count 201 10^3/uL (130-400); Red Blood Cell Count 4.37 10^6/uL (4.20-5.40); Red Cell Dist. Width 15.9 % (11.5-14.5); White Blood Cell Count 5.7 10^3/uL (4.8-10.8)
[2024-06-08 11:30] LABS: ALT (SGPT) 23 U/L (0-35); AST (SGOT) 29 U/L (14-36); Alkaline Phosphatase 78 U/L (38-126); Blood Urea Nitrogen 13 mg/dl (7-17); Calcium 8.9 mg/dl (8.4-10.2); Carbon Dioxide 24 mmol/L (22-30); Chloride 104 mmol/L (98-107); Glucose 98 mg/dl (70-99); Potassium 3.7 mmol/L (3.5-5.1); Sodium 138 mmol/L (135-145); Total Bilirubin 0.2 mg/dl (0.2-1.3); Total Protein 6.6 g/dl (6.3-8.2); eGFR > 60.00
[2024-06-08] MEDS: ANCEF 5 IV (11:34)
[2024-06-08 12:15] VITALS: BP 91/64
== END 2024-06-08 12:16 | disposition home or self-care (01) ==
LOC: EMR 10:04
PROVIDERS: EMERGENCY PHYSICIAN Emergency Medicine; FAMILY PHYSICIAN Family Medicine
DX: O91.23 Nonpurulent mastitis associated with lactation (principal)
CPT/HCPCS: 96374; 99284; 80053; 85025

== ENCOUNTER → 2024-06-11 10:46 | Outpatient (REF) | payer OTHER, SELFPAY | LOC: WDC 10:46 | PROVIDERS: ATTENDING PHYSICIAN Obstetrics & Gynecology; FAMILY PHYSICIAN Nurse Practitioner | DX: N63.10 Unspecified lump in the right breast, unspecified quadrant (principal); N64.4 Mastodynia; N64.59 Other signs and symptoms in breast | CPT/HCPCS: 76642 ==